=== PATIENT | female | born 1990 | race Caucasian/White ===

== ENCOUNTER 2019-05-13 11:44 | Emergency (ER) | payer OTHER, SELFPAY ==
--- OUTSIDE RECORDS SUMMARY | 2019-05-13 11:46 | XMS REPORT ---
:1990 Author Organization [facility] Address [address] [place] [address] [address]. [address] [place] [address] Care Team Providers Name Role Phone Unavailable Unavailable Unavailable Problems This patient has no known problems. Allergies, Adverse Reactions, Alerts This patient has no known allergies or adverse reactions. Medications This patient has no known medications.
--- OUTSIDE RECORDS SUMMARY | 2019-05-13 11:47 | XMS REPORT | Summary of Care ---
:1990 Author Organization [facility] Address [address] [place] [address] Care Team Providers Name Role Phone Kaila Tapia [facility] Primary Care Provider Reason for Visit Reason Comments No Show (DNKA) Encounter Details Date Type Department Care Team Description 05/04/2019 Telephone [facility]- Kaila Tapia, No Show (DNKA ) [facility] [address] [facility] [address] [place] [address] [facility] [phone] [place] [address] Allergies No Known Allergiesdocumented as of this encounter (statuses as of 05/04/2019) Medications Medication Sig Dispensed Refills Start Date End Date Status PNV#67-iron ps-FA Take 1 Each by 30 capsule 11 12/27/2016 Active cmb#1-dha (VITAFOL mouth daily. 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 Tobacco smoking affecting 05/15/2015 documented as of this encounter (statuses as of 05/04/2019) Resolved Problems Problem Noted Date Resolved Date Encounter for routine gynecological examination 05/15/2015 05/30/2015 Overview: ICD10 Diagnosis Term Liquid Fertilizer Servicer Utility General counseling and advice for contraceptive management 05/15/20152016 Overview: ICD10 Diagnosis Term Liquid Fertilizer Servicer Utility Screening for STD (sexually transmitted disease) 05/15/2015 05/30/2015 Need for Tdap vaccination 05/15/2015 05/30/2015 Lump or mass in breast 05/15/2015 12/27/2016 documented as of this encounter (statuses as of 05/04/2019) Immunizations Name Administration Dates Next Due HPV 05/15/2015 Influenza Virus Vaccine Quad IM 3+ YRS 12/27/2016, 05/29/2015 Tdap 05/15/2015 documented as of this encounter Social History Tobacco Use Types Packs/Day Years Used Date Current Every Day Smoker Cigarettes 0.3 Started: 12/27/2012 Smokeless Tobacco: Never Used Alcohol Use Drinks/Week oz/Week Comments No 0 Standard drinks or equivalent 0.0 quit when she found out about Sex Assigned at Date Recorded Not on file Job Start Date Occupation Industry Not on file Not on file Not on file Travel History Travel Start Travel End No recent travel history available. documented as of this encounter Last Filed Vital Signs Not on filedocumented in this encounter Plan of Treatment Health Maintenance Due Date Last Done Comments PNEUMOCOCCAL 0-64 YEARS COMBINED SERIES (1 1997 of 1 - PPSV23) PAP SMEAR 05/15/2018 05/15/2015, 07/29/2008 INFLUENZA VACCINE (#1) 2019 12/27/2016, 05/29/2015 DTaP,Tdap,and Td Vaccines (2 - Td) 05/15/2025 05/15/2015 documented as of this encounter Goals Goal Patient Goal Associated Recent Patient-Stated? Author Type Problems Progress Quit using Tobacco Use pricilla Howard RN (cigarettes, smokeless, etc) documented as of this encounter Results Not on filedocumented in this encounter Insurance Payer Benefit Plan Subscriber ID Effective Phone Address Type / Group Dates [facility] xxxxxxxxx 2019-Prese [phone] [address] Medicaid WOMEN nt [address] [place] [address] documented as of this encounter Advance Directives Name Relationship Healthcare Agent Relationship Communication Ashley Brewer Mother Primary healthcare agent
--- OUTSIDE RECORDS SUMMARY | 2019-05-13 11:47 | XMS REPORT | Summary of Care ---
:1990 Author Organization [facility] Address [address] [place] [id number] Care Team Providers Name Role Phone Kaila Tapia [facility] Primary Care Provider Encounter Details Date Type Department Care Team Description 04/12/2019 Letter (Out) [facility] [address] [place] [address] [place] [address] [facility] [phone] [place] [address] Allergies No Known Allergiesdocumented as of this encounter (statuses as of 04/12/2019) Medications Medication Sig Dispensed Refills Start Date End Date Status PNV#67-iron ps-FA Take 1 Each by 30 capsule 11 12/27/2016 Active cmb#1-dha (VITAFOL mouth daily. 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 Tobacco smoking affecting 05/15/2015 documented as of this encounter (statuses as of 04/12/2019) Resolved Problems Problem Noted Date Resolved Date Encounter for routine gynecological examination 05/15/2015 05/30/2015 Overview: ICD10 Diagnosis Term Radio Survey Worker Utility General counseling and advice for contraceptive management 05/15/20152016 Overview: ICD10 Diagnosis Term Radio Survey Worker Utility Screening for STD (sexually transmitted disease) 05/15/2015 05/30/2015 Need for Tdap vaccination 05/15/2015 05/30/2015 Lump or mass in breast 05/15/2015 12/27/2016 documented as of this encounter (statuses as of 04/12/2019) Immunizations Name Administration Dates Next Due HPV [...] filedocumented in this encounter Plan of Treatment Date Type Specialty Care Team Description 04/20/2019 Office Visit [facility]ell[facility], [facility] [address] [place], [place] [phone] Health Maintenance Due Date Last Done Comments PNEUMOCOCCAL 0-64 YEARS COMBINED SERIES (1 1997 of 1 - PPSV23) PAP SMEAR 05/15/2018 05/15/2015, 07/29/2008 INFLUENZA VACCINE (#1) 2019 12/27/2016, 05/29/2015 DTaP,Tdap,and Td Vaccines (2 - Td) 05/15/2025 05/15/2015 documented as of this encounter Goals Goal Patient Goal Associated Recent Patient-Stated? Author Type Problems Progress Quit using Tobacco Use No pricilla Braswell RN (cigarettes, smokeless, etc) documented as of this encounter Results Not on filedocumented in this encounter Insurance Payer Benefit Plan Subscriber ID Effective Phone Address Type / Group Dates [facility] xxxxxxxxx 2019-Prese [phone] [address] Medicaid WOMEN nt [address] [place] [address] documented as of this encounter Advance Directives Name Relationship Healthcare Agent Relationship Communication Ashley Brewer Mother Primary healthcare agent [phone] ([place])
--- OUTSIDE RECORDS SUMMARY | 2019-05-13 11:47 | XMS REPORT | Summary of Care ---
:1990 Author Organization [facility] Address [address] [place] [address] Care Team Providers Name Role Phone Kaila Tapia [facility] Primary Care Provider Reason for Visit Reason Comments No Show (DNKA) Encounter Details Date Type Department Care Team Description 05/04/2019 Telephone [facility]- Kaila Tapia, No Show (DNKA ) [facility] [address] [facility] [address] [place] [address] [facility] [phone] [place] [address] Allergies No Known Allergiesdocumented as [...] Obesity affecting 05/15/2015 Overview: ICD10 Diagnosis 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 Tobacco smoking affecting 05/15/2015 documented as of this encounter (statuses as of 05/04/2019) Resolved Problems Problem Noted Date Resolved Date Encounter for routine gynecological examination 05/15/2015 05/30/2015 Overview: ICD10 Diagnosis 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 General counseling and advice for contraceptive management 05/15/20152016 Overview: ICD10 Diagnosis 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 Screening for STD (sexually transmitted disease) [...] Effective Phone Address Type / Group Dates [facility] xxxxxxxxx 2019-Prese [phone] [address] Medicaid WOMEN nt [address] [place] [address] documented as of this encounter Advance Directives Name Relationship Healthcare Agent Relationship Communication Ashley Brewer Mother Primary healthcare agent
[2019-05-13] MEDS ORDERED: NA CHLORIDE 0.9% 1,000 ML ONE ×2 (12:30→14:07)
[2019-05-13 12:49] LABS: Absolute Lymphocytes (CBC) 1.3 K/uL (0.7-4.9); Basophils % 0.4 % (0-1.3); Hematocrit 41.7 % (36.0-45.0); Lymphocytes % 25.6 % (15.3-44.8); MPV 9.1 fL (7.6-11.3); RBC Red Blood Cell Count 4.35 M/uL (3.86-4.86)
[2019-05-13 13:01] LABS: ALT/SGPT 19 U/L (12-78); AST/SGOT 14 U/L (15-37); Albumin 4.1 g/dL (3.4-5.0); Alkaline Phosphatase 56 U/L (45-117); BUN Blood Urea Nitrogen 11 mg/dL (7-18); Bicarbonate 22 mmol/L (21-32); Bilirubin Direct 0.2 mg/dL (0-0.2); Bilirubin Total 0.5 mg/dL (0.2-1.0); Glucose Level 105 mg/dL (74-106); Potassium 3.5 mmol/L (3.5-5.1); Sodium Level 142 mmol/L (136-145)
[2019-05-13 13:39] LABS: Urine Bacteria 20-50 /HPF (<20); Urine RBC <5 /HPF (NONE SEEN)
[2019-05-13] MEDS ORDERED: FENTANYL CITR 100 MCG/2 ML ONE (13:43)
[2019-05-13 13:44] LABS: Urine Culture Reflex Order NOT NEEDED
[2019-05-13 13:45] LABS: Urine Blood NEGATIVE (NEG); Urine Glucose NEGATIVE (NEG); Urine Protein NEGATIVE (NEG); Urine pH 6.5 (5.0-7.0)
--- NOTE | 2019-05-13 13:48 | RAD REPORT ---
EXAM DESCRIPTION: CT - [id number] - 05/13/2019 1:38 pm COMPARISON: None. TECHNIQUE: Axial 5 mm thick images of the head were obtained. Axial 2 mm thick images of the cervic al spine were obtained with sagittal and coronal reconstruction images generated and reviewed. All CT scans are performed using dose optimization technique as appropriate and may include automated exposure control or mA/KV adjustment according to patient size. FINDINGS: No intracranial hemorrhage, mass, edema or acute intracranial finding. No suspicion for acute infarct ion. No extra-axial fluid collections. Mastoid air cells and paranasal sinuses are clear. No globe or orbit abnormality seen. Cervical bodies are normal in height. No subluxation abnormality. There is reversal of the usual cerv ical lordosis that may be a positioning artifact. No disk space narrowing. No fracture or acute bony abnormality. No paraspinal mass or hematoma. IMPRESSION: Negative CT head examination for acute or significant finding. Negative CT cervical spine examination for acute or significant finding.
[2019-05-13] MEDS ORDERED: DIPHENHYDRAMINE 50 MG/ML VIAL ONE (14:07)
[2019-05-13] MEDS ORDERED: DIAZEPAM 10 MG/2 ML INJ SYRINGE ONE (15:16)
[2019-05-13] MEDS ORDERED: KETOROLAC 30 MG/ML INJ ONE (15:17)
--- NOTE | 2019-05-13 15:27 | ER ---
Nurse's Notes [facility] Name: Rose Marie Brewer Age: 28 yrs Sex: Female : 1990 Arrival Date: 05/13/2019 Time: 11:49 Bed 24 Private MD: None, None Diagnosis: Headache Presentation: 05/13 12:02 Presenting complaint: Patient states: MELÉNDEZ for about week, nausea, blurry vision when la1 pain is bad, interfering with sleep. Transition of care: patient was not received from another setting of care. Onset of symptoms was May 13, 2019. Risk Assessment: Do you want to hurt yourself or someone else? Patient reports no desire to harm self or others. Initial Sepsis Screen: Does the patient meet any 2 criteria? No. Patient's initial sepsis screen is negative. Does the patient have a suspected source of infection? No. Patient's initial sepsis screen is negative. Care prior to arrival: None. 12:02 Method Of Arrival: Ambulatory la1 12:02 Acuity: STANTON 3 la1 Triage Assessment: 12:49 Headache History: Denies prior headaches. General: Appears in no apparent distress. mg2 comfortable, Behavior is calm, cooperative. Pain: Complains of pain in right temporal area Also complains of inability to concentrate. AGENT SPA DESK: 12:01 LMP N/A - control method la1 Historical: - Allergies: 12:01 No Known Allergies; la1 - PMHx: 12:01 None; la1 - Immunization history:: Adult Immunizations up to date. - Social history:: Smoking status: Patient uses tobacco products, denies chronic smoking, but will smoke occasionally. - Ebola Screening: : No symptoms or risks identified at this time. Screenin:45 Abuse screen: Denies threats or abuse. Denies injuries from another. Nutritional mg2 screening: No deficits noted. Tuberculosis screening: No symptoms or risk factors identified. Fall Risk IV access (20 points). Assessment: 12:41 General: Appears in no apparent distress. comfortable, Behavior is calm, cooperative. mg2 Pain: Complains of pain in head Pain does not radiate. Pain currently is 8 out of 10 on a pain scale. Quality of pain is described as aching, Pain began gradually, Is intermittent. Neuro: Level of Consciousness is awake, alert, obeys commands, Oriented to person, place, time, situation. Neuro: Reports dizziness. Neuro: Reports headache in right since 1 week now. Cardiovascular: Capillary refill < 3 seconds Patient's skin is warm and dry. Respiratory: Airway is patent Respiratory effort is even, unlabored, Respiratory pattern is regular, symmetrical. GI: Reports nausea. : No signs and/or symptoms were reported regarding the genitourinary system. EENT: No signs and/or symptoms were reported regarding the EENT system. Derm: Skin is intact, is healthy with good turgor, Skin is pink, warm \T\ dry. normal. Musculoskeletal: Circulation, motion, and sensation intact. Capillary refill < 3 seconds. 14:00 Reassessment: Patient appears in no apparent distress at this time. Patient and/or mg2 family updated on plan of care and expected duration. Pain level reassessed. 15:37 Reassessment: Patient states feeling better. Patient states symptoms have improved. mg2 Vital Signs: 12:01 BP 118 / 88; Pulse 84; Resp 16; Temp 97.7; Pulse Ox 100% on R/A; Weight 88.45 kg; la1 Height 5 ft. 5 in. (165.10 cm); 14:12 BP 132 / 89; Pulse 68; Resp 18; Pulse Ox 100% on R/A; mg2 15:37 BP 129 / 78; Pulse 70; Resp 18; Temp 98; Pulse Ox 100% on R/A; Pain 2/10; mg2 12:01 Body Mass Index 32.45 (88.45 kg, 165.10 cm) la1 Orlando Coma Score: 15:27 Eye Response: spontaneous(4). Verbal Response: oriented(5). Motor Response: obeys snw commands(6). Total: 15. ED Course: 11:49 Patient arrived in ED. mr 11:49 None, None is Private Physician. mr 12:00 Arm band placed on left wrist. la1 12:02 Triage completed. la1 12:14 Devonte Zhang RN is Primary Nurse. mg2 12:20 Agata Shelton FNP-C is PHCP. snw 12:20 Yaya Galicia MD is Attending Physician. snw 12:46 No provider procedures requiring assistance completed. Inserted saline lock: 20 gauge mg2 in right forearm, using aseptic technique. Blood collected. 12:47 Patient has correct armband on for positive identification. Pulse ox on. NIBP on. Door mg2 closed. Warm blanket given. 13:36 CT completed. Patient tolerated procedure well. Patient moved back from CT. bq 13:38 CT Head C Spine In Process Unspecified. EDMS 15:25 Jasvir Gill MD is Referral Physician. snw 15:37 IV discontinued, intact, bleeding controlled, No redness/swelling at site. Pressure mg2 dressing applied. Administered Medications: 12:41 Drug: NS 0.9% 1000 ml Route: IV; Rate: 1 bolus; Site: right antecubital; mg2 15:36 Follow up: Response: No adverse reaction; IV Status: Completed infusion; IV Intake: mg2 1000ml 13:44 Drug: fentaNYL (PF) 25 mcg Route: IVP; Site: right forearm; mg2 15:36 Follow up: Response: No adverse reaction; Marked relief of symptoms; RASS: Alert and mg2 Calm (0) 14:10 Drug: Benadryl 12.5 mg Route: IVP; Site: right femoral; mg2 15:36 Follow up: Response: No adverse reaction; Marked relief of symptoms mg2 14:11 Drug: NS 0.9% 1000 ml Route: IV; Rate: 1 bolus; Site: right forearm; mg2 15:36 Follow up: Response: No adverse reaction; IV Status: Completed infusion; IV Intake: mg2 1000ml 15:21 Drug: TORadol - Ketorolac 15 mg Route: IVP; Site: right forearm; mg2 15:36 Follow up: Response: No adverse reaction; Marked relief of symptoms mg2 15:21 Drug: Valium 5 mg Route: IVP; Site: right forearm; mg2 15:35 Follow up: Response: No adverse reaction; Marked relief of symptoms mg2 Intake: 15:36 IV: 1000ml; Total: 1000ml. mg2 15:36 IV: 1000ml; Total: 2000ml. mg2 Outcome: 15:26 Discharge ordered by . snw 15:37 Discharged to home ambulatory, with family. mg2 15:37 Condition: stable 15:37 Discharge instructions given to patient, family, Instructed on discharge instructions, follow up and referral plans. medication usage, Demonstrated understanding of instructions, follow-up care, medications, Prescriptions given X 3. 15:38 Patient left the ED. mg2 Signatures: Dispatcher [employer] EDMO Agata Shelton FNP-C [employer]SEM[employer]ER [employer] Hetal Rojas mr Ruthjorden, Konstantin Clifton, RN RN la1 Devonte Zhang, RN RN mg2
--- NOTE | 2019-05-13 15:28 | EDPHYS ---
Physician Documentation [facility] Name: Rose Marie Brewer Age: 28 yrs Sex: Female : 1990 Arrival Date: 05/13/2019 Time: 11:49 Bed 24 Private MD: None, None ED Physician Yaya Galicia HPI: 05/13 12:48 This 28 yrs old Female presents to ER via Ambulatory with complaints of snw Headache, Dizziness, Nausea. 12:48 The patient complains of pain to the right rastafari and right temporal area and right snw side of the back of head and right frontal area. The patient describes the headache as throbbing. Onset: The symptoms/episode began/occurred 1 week(s) ago, and became persistent. Associated signs and symptoms: Pertinent positives: dizziness, nausea. Severity of symptoms: At its worst the pain was moderate. Headache History: Denies prior headaches. The symptoms are alleviated by nothing. The patient has not experienced similar symptoms in the past. It is unknown whether or not the patient has recently seen a physician. Pt had Mirena placed a few months ago. 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 - Social history:: Smoking status: Patient uses tobacco products, denies chronic smoking, but will smoke occasionally. - Ebola Screening: : No symptoms or risks identified at this time. ROS: 12:48 Eyes: Negative for injury, pain, redness, and discharge, ENT: Negative for injury, snw pain, and discharge, Neck: Negative for injury, pain, and swelling, Cardiovascular: Negative for chest pain, palpitations, and edema, Respiratory: Negative for shortness of breath, cough, wheezing, and pleuritic chest pain, Abdomen/GI: Negative for abdominal pain, nausea, vomiting, diarrhea, and constipation, Back: Negative for injury and pain, : Negative for injury, bleeding, discharge, and swelling, MS/Extremity: Negative for injury and deformity, Skin: Negative for injury, rash, and discoloration. 12:48 Constitutional: Negative for chills, fatigue, fever, poor PO intake. 12:48 Neuro: Positive for headache, of the right frontal area, right side of the back of head, right temporal area and right rastafari. Exam: 12:48 Constitutional: This is a well developed, well nourished patient who is awake, alert, snw and in no acute distress. Head/Face: Normocephalic, atraumatic. Eyes: Pupils equal round and reactive to light, extra-ocular motions intact. Lids and lashes normal. Conjunctiva and sclera are non-icteric and not injected. Cornea within normal limits. Periorbital areas with no swelling, redness, or edema. ENT: Nares patent. No nasal discharge, no septal abnormalities noted. Tympanic membranes are normal and external auditory canals are clear. Oropharynx with no redness, swelling, or masses, exudates, or evidence of obstruction, uvula midline. Mucous membranes moist. Neck: Trachea midline, no thyromegaly or masses palpated, and no cervical lymphadenopathy. Supple, full range of motion without nuchal rigidity, or vertebral point tenderness. No Meningismus. Chest/axilla: Normal chest wall appearance and motion. Nontender with no deformity. No lesions are appreciated. Cardiovascular: Regular rate and rhythm with a normal S1 and S2. No gallops, murmurs, or rubs. Normal PMI, no JVD. No pulse deficits. Respiratory: Lungs have equal breath sounds bilaterally, clear to auscultation and percussion. No rales, rhonchi or wheezes noted. No increased work of breathing, no retractions or nasal flaring. Abdomen/GI: Soft, non-tender, with normal bowel sounds. No distension or tympany. No guarding or rebound. No evidence of tenderness throughout. Back: No spinal tenderness. No costovertebral tenderness. Full range of motion. Skin: Warm, dry with normal turgor. Normal color with no rashes, no lesions, and no evidence of cellulitis. MS/ Extremity: Pulses equal, no cyanosis. Neurovascular intact. Full, normal range of motion. Neuro: Awake and alert, GCS 15, oriented to person, place, time, and situation. Cranial nerves II-XII grossly intact. Motor strength 5/5 in all extremities. Sensory grossly intact. Cerebellar exam normal. Normal gait. Vital Signs: 12:01 BP 118 / 88; Pulse 84; Resp 16; Temp 97.7; Pulse Ox 100% on R/A; Weight 88.45 kg; la1 Height 5 ft. 5 in. (165.10 cm); 14:12 BP 132 / 89; Pulse 68; Resp 18; Pulse Ox 100% on R/A; mg2 15:37 BP 129 / 78; Pulse 70; Resp 18; Temp 98; Pulse Ox 100% on R/A; Pain 2/10; mg2 12:01 Body Mass Index 32.45 (88.45 kg, 165.10 cm) la1 Edgar Coma Score: 15:27 Eye Response: spontaneous(4). Verbal Response: oriented(5). Motor Response: obeys snw commands(6). Total: 15. MDM: 12:21 Patient medically screened. snw 15:27 Data reviewed: vital signs. Counseling: I had a detailed discussion with the patient snw and/or guardian regarding: the historical points, exam findings, and any diagnostic results supporting the discharge/admit diagnosis, the presence of at least one elevated blood pressure reading (>120/80) during this emergency department visit, lab results, radiology results, the need for outpatient follow up, to return to the emergency department if symptoms worsen or persist or if there are any questions or concerns that arise at home. Special discussion: Based on the history and exam findings, there is no indication for further emergent testing or inpatient evaluation. I discussed with the patient/guardian the need to see the neurologist for further evaluation of the symptoms. I discussed with the patient/guardian the need to see the primary care provider for further evaluation of the symptoms. 05/13 12:21 Order name: Strep; Complete Time: 13:11 w 05/13 12:21 Order name: Urine Microscopic Only; Complete Time: 13:50 snw 05/13 12:27 Order name: Basic Metabolic Panel; Complete Time: 13:10 snw 05/13 12:27 Order name: CBC with Diff; Complete Time: 13:10 snw 05/13 12:27 Order name: Hepatic Function; Complete Time: 13:10 w 05/13 13:19 Order name: Throat Culture EDMS 05/13 13:22 Order name: Urine Dipstick--Ancillary (enter results); Complete Time: 13:50 eb 05/13 13:22 Order name: Urine --Ancillary (enter results); Complete Time: 13:50 eb 05/13 13:25 Order name: CT Head C Spine; Complete Time: 14:06 snw 05/13 12:21 Order name: Urine Test (obtain specimen); Complete Time: 13:03 snw 05/13 12:21 Order name: Urine Dipstick-Ancillary (obtain specimen); Complete Time: 13:03 snw 05/13 12:27 Order name: Labs collected and sent; Complete Time: 13:11 snw Administered Medications: 12:41 Drug: NS 0.9% 1000 ml Route: IV; Rate: 1 bolus; Site: right antecubital; mg2 15:36 Follow up: Response: No adverse reaction; IV Status: Completed infusion; IV Intake: mg2 1000ml 13:44 Drug: fentaNYL (PF) 25 mcg Route: IVP; Site: right forearm; mg2 15:36 Follow up: Response: No adverse reaction; Marked relief of symptoms; RASS: Alert and mg2 Calm (0) 14:10 Drug: Benadryl 12.5 mg Route: IVP; Site: right femoral; mg2 15:36 Follow up: Response: No adverse reaction; Marked relief of symptoms mg2 14:11 Drug: NS 0.9% 1000 ml Route: IV; Rate: 1 bolus; Site: right forearm; mg2 15:36 Follow up: Response: No adverse reaction; IV Status: Completed infusion; IV Intake: mg2 1000ml 15:21 Drug: TORadol - Ketorolac 15 mg Route: IVP; Site: right forearm; mg2 15:36 Follow up: Response: No adverse reaction; Marked relief of symptoms mg2 15:21 Drug: Valium 5 mg Route: IVP; Site: right forearm; mg2 15:35 Follow up: Response: No adverse reaction; Marked relief of symptoms mg2 Disposition: 18:25 Co-signature as Attending Physician, Yaya Galicia MD. ma2 Disposition: 05/13/19 15:26 Discharged to Home. Impression: Headache. - Condition is Stable. - Discharge Instructions: General Headache Without Cause, Analgesic Rebound Headaches, Rehydration, Adult. - Prescriptions for Fiorinal 50- 325-40 mg Oral Capsule - take 1 capsule by ORAL route every 4 hours As needed - not to exceed 6 capsules per day; 20 capsule. orphenadrine citrate 100 mg Oral Tablet Sustained Release - take 1 tablet by ORAL route 2 times per day As needed; 20 tablet. promethazine 25 mg Oral Tablet - take 1 tablet by ORAL route every 6 hours As needed; 20 tablet. - Work release form, Medication Reconciliation Form, Thank You Letter, Antibiotic Education, Prescription Opioid Use form. - Follow up: Jasvir Gill MD; When: 2 - 3 days; Reason: Recheck today's complaints, Continuance of care. Follow up: Private Physician; When: 2 - 3 days; Reason: Recheck today's complaints, Continuance of care, Re-evaluation by your physician. Signatures: Dispatcher [employer] [facility] Agata Shelton, WOOD SCRAP HANDLER-C WOOD SCRAP HANDLER-Cs[employer] Konstantin Luis RN RN la1 Yaya Galicia MD MD ma2 Devonte Zhang RN RN mg2 Corrections: (The following items were deleted from the chart) 13:27 13:20 URINE DIPSTICK--ANCILLARY+U.LAB.BRZ ordered. [facility] 15:38 15:26 05/13/2019 15:26 Discharged to Home. Impression: Headache. Condition is Stable. mg2 Forms are Medication Reconciliation Form, Thank You Letter, Antibiotic Education, Prescription Opioid Use. Follow up: Jasivr Gill; When: 2 - 3 days; Reason: Recheck today's complaints, Continuance of care. Follow up: Private Physician; When: 2 - 3 days; Reason: Recheck today's complaints, Continuance of care, Re-evaluation by your physician. snw
[2019-05-13 15:54] VITALS: O2SAT 100
[2019-05-13 15:57] VITALS: BP 129/78; TEMP 98
== END 2019-05-13 15:38 | disposition home or self-care (01) ==
LOC: ER 11:44
DX: R51 Headache (principal); Z72.0 Tobacco use
CPT/HCPCS: 36415; 70450; 72125; 80048; 80076; 81003; 81015; 81025; 85025; 87070; 87081; 99284; J3010; J3360; J7030